=== PATIENT | male | born 1985 | race Caucasian/White ===

== ENCOUNTER 2021-06-26 01:57 | Inpatient (IN) | payer OTHER ==
[2021-06-26] MEDS ORDERED: SODIUM CHLORIDE 1,000 ML IV STA ×2 (02:32→02:33)
[2021-06-26] MEDS ORDERED: ONDANSETRON 4 MG/2 ML VIAL ONE (02:41)
[2021-06-26] MEDS ORDERED: ONDANSETRON 4 MG/2 ML VIAL IVPUSH ONE (02:42)
[2021-06-26] MEDS ORDERED: LACTATED RINGERS SOLUTION 1,000 ML/1,000 ML INFUS.BAG IV STA ×2 (02:43)
[2021-06-26 02:53] LABS: VENOUS BASE EXCESS -26.6 mmol/L (-2-2); VENOUS O2 SATURATION 74.4 % (70-80); VENOUS PCO2 20.5 mmHg (38-52)
[2021-06-26 02:57] LABS: INR 1.12 (0.83-1.09); PROTHROMBIN TIME (PATIENT) 12.9 SEC (9.7-13.0); VENOUS PH 6.948 (7.310-7.410)
[2021-06-26 02:59] LABS: ACTIVATED PTT 30.8 SECONDS (25.2-36.5)
[2021-06-26] MEDS ORDERED: INSULIN REGULAR HUMAN 100 UNITS/ML *VIAL ONE (03:01)
[2021-06-26 03:08] LABS: CHLORIDE 91 mmol/L (98-107); SODIUM 124 mmol/L (136-145)
[2021-06-26 03:10] LABS: CALCIUM 8.7 mg/dL (8.5-10.1)
[2021-06-26 03:12] LABS: ALBUMIN 3.8 g/dl (3.4-5.0); ANION GAP 27 MMOL/L (8-16); BLOOD UREA NITROGEN 28.6 mg/dL (7-18); CO2 6 mmol/L (21-32)
[2021-06-26] MEDS ORDERED: INSULIN REGULAR HUMAN 100 UNITS/ML *VIAL* (FOR IVP) IVPUSH ONE (03:13)
[2021-06-26 03:14] LABS: SGOT/AST 13 U/L (15-37); SGPT/ALT 14 U/L (13-61)
[2021-06-26 03:15] LABS: BILIRUBIN,TOTAL 0.5 mg/dL (0.2-1); TOT PROT 7.6 g/dl (6.4-8.2)
[2021-06-26 03:17] LABS: ALK PHOS 102 U/L (45-117)
[2021-06-26 03:21] LABS: EPI CELLS 2 /uL (0-25.1); HYALINE CASTS 1 /uL (0-3.1); URINE APPEARANCE CLEAR; URINE BACTERIA 0 /uL (0-1359); URINE BILIRUBIN NEGATIVE (NEGATIVE); URINE COLOR YELLOW; URINE GLUCOSE (UA) 3+ (NEGATIVE); URINE KETONE 4+ (NEGATIVE); URINE LEUK ESTERASE NEGATIVE (NEGATIVE); URINE NITRITE NEGATIVE (NEGATIVE); URINE PROTEIN 1+ (NEGATIVE); URINE RBC 14 /uL (0-23.9); URINE UROBILINOGEN 0.2 mg/dL (0.2-1.0); URINE WBC 1 /uL (0-25.8)
[2021-06-26 03:24] LABS: GLUCOSE,RANDOM 632 mg/dL (74-106)
[2021-06-26] MEDS: INSULIN REGULAR 100 UNITS in SODIUM CHLORIDE 99 ML IVPB SCH ×2 (03:31→09:29)
[2021-06-26 03:34] LABS: HEMATOCRIT 48.4 % (35.4-49); HEMOGLOBIN 15.3 GM/dL (11.7-16.9); MCH 27.6 pg (25.7-33.7); MCHC 31.6 g/dl (32.0-35.9); MEAN CELL VOLUME 87.2 fl (80-96); MEAN PLT VOLUME 8.9 fl (7.5-11.1); PLATELET COUNT 329 10^3/uL (134-434); RBC 5.55 M/mm3 (4.00-5.60); RDW 13.9 % (11.9-15.9)
[2021-06-26] MEDS ORDERED: LACTATED RINGERS SOLUTION 1,000 ML/1,000 ML INFUS.BAG IV SCH ×3 (04:30→04:45)
[2021-06-26] MEDS ORDERED: KCL 10 MEQ IVPB 10 MEQ/100 ML INFUS.BAG IVPB ONE (04:35)
[2021-06-26] MEDS ORDERED: KCL 10 MEQ IVPB 10 MEQ/100 ML INFUS.BAG IVPB SCH (04:45)
[2021-06-26 04:53] LABS: ANISOCYTOSIS 2+; MACROCYTOSIS 0; OVALOCYTE 1+
[2021-06-26] MEDS ORDERED: SODIUM CHLORIDE 0.45% 1,000 ML IV SCH (05:45)
[2021-06-26 06:29] LABS: ARTERIAL BLD GAS O2 SATURATION 97.4 % (95-98); ARTERIAL BLOOD GAS BASE EXCESS -21.7 mmol/L (-2-2); ARTERIAL BLOOD GAS PO2 126.5 mmHg (80-100)
[2021-06-26 06:49] LABS: HEMATOCRIT 43.2 % (35.4-49); HEMOGLOBIN 14.1 GM/dL (11.7-16.9); MCH 27.4 pg (25.7-33.7); MCHC 32.6 g/dl (32.0-35.9); MEAN CELL VOLUME 83.9 fl (80-96); MEAN PLT VOLUME 8.3 fl (7.5-11.1); PLATELET COUNT 251 10^3/uL (134-434); RBC 5.14 M/mm3 (4.00-5.60); RDW 13.4 % (11.9-15.9); WHITE BLOOD COUNT 20.5 K/mm3 (4.0-10.0)
[2021-06-26 06:59] LABS: ALLENS TEST POSITIVE
[2021-06-26 07:03] LABS: ARTERIAL BLOOD GAS pH 7.104 (7.350-7.450)
[2021-06-26 07:08] LABS: CALCIUM 7.6 mg/dL (8.5-10.1)
[2021-06-26 07:09] LABS: BLOOD UREA NITROGEN 23.6 mg/dL (7-18)
[2021-06-26 07:12] LABS: CREATININE 1.6 mg/dL (0.55-1.3)
[2021-06-26] MEDS ORDERED: SODIUM CHLORIDE 0.45% 1,000 ML with POTASSIUM CHLORIDE 20 MEQ IV SCH (07:24)
[2021-06-26 07:25] LABS: LACTIC ACID 2.2 mmol/L (0.4-2.0)
[2021-06-26 09:17] LABS: CALCIUM 8.3 mg/dL (8.5-10.1)
[2021-06-26 09:18] LABS: BLOOD UREA NITROGEN 23.5 mg/dL (7-18)
[2021-06-26 09:23] LABS: CREATININE 1.6 mg/dL (0.55-1.3)
[2021-06-26] MEDS ORDERED: DEXTROSE 5%-NORMAL SALINE 1,000 ML IV SCH (09:30)
[2021-06-26] MEDS: MUPIROCIN 2% TOPICAL OINTMENT FOR DECOLONIZATION NS SCH ×2 (11:13→21:18)
[2021-06-26] MEDS ORDERED: ONDANSETRON 4 MG/2 ML VIAL IVPUSH PRN (11:19)
[2021-06-26 11:23] LABS: CALCIUM 7.8 mg/dL (8.5-10.1)
[2021-06-26 11:24] LABS: BLOOD UREA NITROGEN 17.4 mg/dL (7-18)
[2021-06-26 11:27] LABS: CREATININE 1.5 mg/dL (0.55-1.3)
[2021-06-26] MEDS ORDERED: VANCOMYCIN PREMIX 1.5 GM 1,500 MG/300 ML BAG IVPB ONE (12:57)
[2021-06-26] MEDS ORDERED: SODIUM CHLORIDE 1,000 ML IV SCH (17:00)
[2021-06-26] MEDS: SODIUM CHLORIDE 1,000 ML IV SCH (17:07)
[2021-06-26] MEDS: INSULIN SLIDING SCALE (NOVOLOG) 1 VIAL SQ SCH (17:07)
[2021-06-26] MEDS ORDERED: CHLORHEXIDINE GLUCONATE 4% CLEANSER FOR DECOLONIZATION TP SCH (22:00)
[2021-06-27] MEDS: SODIUM CHLORIDE 1,000 ML IV SCH ×3 (02:32→18:46)
[2021-06-27] MEDS: INSULIN SLIDING SCALE (NOVOLOG) 1 VIAL SQ SCH ×3 (06:43→16:41)
[2021-06-27 07:28] LABS: HEMATOCRIT 39.2 % (35.4-49); HEMOGLOBIN 13.4 GM/dL (11.7-16.9); MCHC 34.2 g/dl (32.0-35.9); MEAN PLT VOLUME 7.8 fl (7.5-11.1); PLATELET COUNT 209 10^3/uL (134-434); RBC 4.78 M/mm3 (4.00-5.60); RDW 13.9 % (11.9-15.9); WHITE BLOOD COUNT 10.1 K/mm3 (4.0-10.0)
[2021-06-27 07:51] LABS: CHLORIDE 107 mmol/L (98-107); SODIUM 136 mmol/L (136-145)
[2021-06-27 07:56] LABS: BLOOD UREA NITROGEN 10.7 mg/dL (7-18); CO2 14 mmol/L (21-32); GLUCOSE,RANDOM 267 mg/dL (74-106)
[2021-06-27 07:57] LABS: ANION GAP 15 MMOL/L (8-16); CALCIUM 7.8 mg/dL (8.5-10.1); MAGNESIUM 1.9 mg/dL (1.8-2.4)
[2021-06-27 07:59] LABS: CREATININE 1.2 mg/dL (0.55-1.3); SGOT/AST 12 U/L (15-37); SGPT/ALT 10 U/L (13-61)
[2021-06-27 08:00] LABS: BILIRUBIN,TOTAL 0.6 mg/dL (0.2-1)
[2021-06-27 08:02] LABS: ALK PHOS 72 U/L (45-117)
[2021-06-27 08:10] LABS: ALBUMIN 2.9 g/dl (3.4-5.0); PHOSPHOROUS 0.8 mg/dL (2.5-4.9); TOT PROT 5.5 g/dl (6.4-8.2)
[2021-06-27] MEDS ORDERED: PANTOPRAZOLE SODIUM 40 MG VIAL IVPUSH SCH (10:00)
[2021-06-27] MEDS ORDERED: INSULIN (LEVEMIR) 100 UNITS/ML UNITS SQ SCH (10:00)
[2021-06-27] MEDS ORDERED: ENOXAPARIN NA (PORCINE) 40 MG/0.4 ML DISP.SYRIN SQ SCH (10:00)
[2021-06-27] MEDS ORDERED: FAMOTIDINE 20 MG TABLET PO SCH (10:00)
[2021-06-27] MEDS ORDERED: NAPH,MB-DB/K PH,MBDB POWDER PACKET PO SCH ×2 (14:00→22:00)
[2021-06-27] MEDS: MUPIROCIN 2% TOPICAL OINTMENT FOR DECOLONIZATION NS SCH (14:32)
[2021-06-27] MEDS ORDERED: ONDANSETRON 4 MG/2 ML VIAL IVPUSH PRN (18:29)
[2021-06-27] MEDS: INSULIN (LEVEMIR) 100 UNITS/ML UNITS SQ SCH (22:05)
[2021-06-28] MEDS: SODIUM CHLORIDE 1,000 ML IV SCH ×3 (04:02→19:37)
[2021-06-28] MEDS: INSULIN SLIDING SCALE (NOVOLOG) 1 VIAL SQ SCH ×3 (06:02→16:37)
[2021-06-28] MEDS: INSULIN (LEVEMIR) 100 UNITS/ML UNITS SQ SCH ×2 (06:02→21:42)
[2021-06-28 09:23] LABS: BASO % 0.5 % (0-2.0); EOS % 0.4 % (0-4.5); HEMATOCRIT 38.2 % (35.4-49); HEMOGLOBIN 12.8 GM/dL (11.7-16.9); LYMPH % 23.7 % (8-40); MCH 27.3 pg (25.7-33.7); MCHC 33.4 g/dl (32.0-35.9); MEAN CELL VOLUME 81.7 fl (80-96); MEAN PLT VOLUME 7.8 fl (7.5-11.1); MONO % 13.7 % (3.8-10.2); NEUT % 61.7 % (42.8-82.8); PLATELET COUNT 219 10^3/uL (134-434); RBC 4.68 M/mm3 (4.00-5.60); RDW 13.7 % (11.9-15.9); WHITE BLOOD COUNT 7.9 K/mm3 (4.0-10.0)
[2021-06-28 09:45] LABS: CALCIUM 7.7 mg/dL (8.5-10.1)
[2021-06-28 09:46] LABS: BLOOD UREA NITROGEN 7.9 mg/dL (7-18)
[2021-06-28] MEDS: ENOXAPARIN NA (PORCINE) 40 MG/0.4 ML DISP.SYRIN SQ SCH (09:52)
[2021-06-28] MEDS ORDERED: FAMOTIDINE 20 MG TABLET PO SCH (10:00)
[2021-06-28] MEDS ORDERED: INSULIN REGULAR HUMAN 100 UNITS/ML *VIAL SQ SCH (11:00)
[2021-06-28] MEDS ORDERED: INSULIN (NOVOLOG) ASPART 100 UNITS/ML 10ML VIAL ONE (11:33)
[2021-06-28] MEDS: PANTOPRAZOLE 40 MG TABLET PO SCH (14:07)
[2021-06-28 15:45] VITALS: BMI 37.1
[2021-06-28] MEDS: INSULIN (NOVOLOG) ASPART 100 UNITS/ML 10ML VIAL SQ SCH (16:38)
[2021-06-29] MEDS: SODIUM CHLORIDE 1,000 ML IV SCH ×2 (01:56→06:17)
[2021-06-29] MEDS: INSULIN SLIDING SCALE (NOVOLOG) 1 VIAL SQ SCH ×3 (06:20→16:53)
[2021-06-29] MEDS: INSULIN (NOVOLOG) ASPART 100 UNITS/ML 10ML VIAL SQ SCH ×3 (06:20→16:52)
[2021-06-29] MEDS: INSULIN (LEVEMIR) 100 UNITS/ML UNITS SQ SCH (06:21)
[2021-06-29 09:30] LABS: CALCIUM 8.2 mg/dL (8.5-10.1)
[2021-06-29 09:31] LABS: MAGNESIUM 2.2 mg/dL (1.8-2.4)
[2021-06-29 09:35] LABS: BILIRUBIN,TOTAL 0.8 mg/dL (0.2-1); TOT PROT 6.3 g/dl (6.4-8.2)
[2021-06-29] MEDS: ENOXAPARIN NA (PORCINE) 40 MG/0.4 ML DISP.SYRIN SQ SCH (09:43)
[2021-06-29] MEDS: PANTOPRAZOLE 40 MG TABLET PO SCH (09:43)
[2021-06-29 09:56] LABS: PHOSPHOROUS 1.2 mg/dL (2.5-4.9)
[2021-06-29] MEDS ORDERED: POTASSIUM CHLORIDE TABS 20 MEQ TABLET.ER (FP) PO SCH (10:00)
[2021-06-29] MEDS: POTASSIUM PHOSPHATE 30 MM in SODIUM CHLORIDE 500 ML IVPB ONE ×2 (12:09→12:10)
[2021-06-29 15:13] VITALS: BP 158/89; PULSE 102; TEMP 98.2
== END 2021-06-29 18:20 | disposition home or self-care (01) | DRG 638 ==
LOC: FER 01:57 → JICU 05:15 → J8W 06-27 18:34
PROVIDERS: ADMIT Internal Medicine Pulmonary Disease; ATTEND Internal Medicine
DX: E11.10 Type 2 diabetes mellitus with ketoacidosis without coma (principal); N17.9 Acute kidney failure, unspecified; Z79.4 Long term (current) use of insulin; D72.829 Elevated white blood cell count, unspecified
CPT/HCPCS: 36415; 36600; 71045-TC-FY; 80048; 80053; 81003; 82010; 82803; 82962; 83036; 83605; 83735; 84100; 85025; 85027; 85610; 85730; 86900; 87040; 87086; 93005; 99285-25; C9803-CS; G0480; U0003; U0005